=== PATIENT | female | born 1965 | race Caucasian/White ===

== ENCOUNTER → 2021-01-20 | Outpatient (CLI) | payer BC ==
[~2021-01-20] MED LIST: ADULT LOW DOSE81 MG PO; CARVEDILOL6.25 MG PO; CILOSTAZOL50 MG PO; DOCUSATE SODIU250 MG PO; GABAPENTIN100 MG PO; HYDROCODONE-AC1 EACH PO; IBUPROFEN600 MG PO; JARDIANCE25 MG PO; LEVOTHYROXINE50 MCG PO; TOUJEO MAX300 UNIT/1 SQ; TRULICITY1.5 MG/0.5 SQ
[2021-01-20 09:14] LABS: HEMOGLOBIN 15.9 gm/dl (12.3-15.3); RED BLOOD COUNT 5.38 M/UL (4.00-5.10); WHITE BLOOD COUNT 3.9 K/UL (4.5-11.0)
[2021-01-20 09:34] LABS: BUN/CREATININE RATIO 22 (0-10)
== END ==
LOC: OPSV2 08:00
PROVIDERS: Obstetrics & Gynecology
DX: Z01.818 Encounter for other preprocedural examination (principal); N81.9 Female genital prolapse, unspecified
CPT/HCPCS: 36415; 80053; 81001; 85025; 93005

== ENCOUNTER → 2021-01-25 | Day surgery (SDC) | payer BC ==
[~2021-01-25] VITALS: Ht 167.6 cm; Wt 89.4 kg
== END | disposition home or self-care (01) ==
LOC: OR 05:01 → EDSTATUS 10:15
DX: N81.9 Female genital prolapse, unspecified (principal); N72 Inflammatory disease of cervix uteri; N80.0 Endometriosis of uterus; I25.10 Atherosclerotic heart disease of native coronary artery without angina pectoris; I10 Essential (primary) hypertension; E78.5 Hyperlipidemia, unspecified; E11.9 Type 2 diabetes mellitus without complications; E03.9 Hypothyroidism, unspecified; Z95.1 Presence of aortocoronary bypass graft; Z88.8 Allergy status to other drugs, medicaments and biological substances; Z79.4 Long term (current) use of insulin; Z79.82 Long term (current) use of aspirin; Z79.899 Other long term (current) drug therapy
CPT/HCPCS: 71045; 82962; C1769; J0690; J1100; J1170; J1885; J2250; J2405; J2704; J2710; J3010; J7030; J7050; J7120